=== PATIENT | male | born 1955 | race Caucasian/White ===

== ENCOUNTER 2021-11-09 23:20 | Inpatient (IN) | payer MEDICARE, MEDICAID ==
[~2021-11-09] VITALS: Ht 180.3 cm; Wt 104.3 kg
[2021-11-09] MEDS ORDERED: ACETAMINOPHEN 1000 MG/100 ML IV STA (23:40)
[2021-11-09] MEDS ORDERED: SODIUM CHLORIDE 0.9% 1000ML 1,000 ML IV ONE (23:45)
[2021-11-10] VITALS (42 sets, daily range): BP systolic 70–161; BP diastolic 45–90
[2021-11-10 00:47] LABS: BASOPHILS % 0.3 % (0.0-1.0); EOSINOPHILS % 0.1 % (0.0-6.0); HEMATOCRIT 39.7 % (38.2-49.6); HEMOGLOBIN 13.5 g/dL (14.0-18.0); LYMPHOCYTES # (AUTO) 1.1 (1.0-3.2); LYMPHOCYTES % 7.1 % (18.0-39.1); MEAN CORPUSCULAR HEMOGLOBIN 31.7 pg (28-32); MEAN CORPUSCULAR VOLUME 93.2 fL (81-99); MONOCYTES # (AUTO) 1.1 (0.2-0.8); MONOCYTES % 6.7 % (4.4-11.3); NEUTROPHILS # (AUTO) 13.1 (2.1-6.9); NEUTROPHILS % 84.3 % (38.7-80.0); PLATELET COUNT 214 x10e3/uL (140-360); RED BLOOD COUNT 4.26 x10e6/uL (4.3-5.7); RED CELL DISTRIBUTION WIDTH 15.5 % (11.7-14.4)
[2021-11-10] MEDS ORDERED: SODIUM CHLORIDE 0.9% 1000ML 1,000 ML IV ONE ×2 (01:00)
[2021-11-10 01:05] LABS: ALBUMIN 2.5 g/dL (3.5-5.0); ALBUMIN/GLOBULIN RATIO 0.5 (0.8-2.0); ANION GAP 14.1 mmol/L (8-16); CALCIUM 9.7 mg/dL (8.4-10.2); CREATININE, SERUM 1.29 mg/dL (0.72-1.25); POTASSIUM 4.1 mmol/L (3.5-5.1)
[2021-11-10] MEDS: CEFEPIME 2 GM in SODIUM CHLORIDE 0.9% 100 ML IV SCH ×4 (01:05→21:37)
[2021-11-10 01:07] LABS: CREATINE KINASE MB 0.6 ng/mL (0-5.0)
[2021-11-10 01:40] LABS: CLARITY,URINE TURBID (CLEAR); COLOR,URINE YELLOW (YELLOW); KETONES,URINE TRACE (NEGATIVE); LEUKOCYTE ESTERASE ,URINE LARGE (NEGATIVE); NITRITE,URINE NEGATIVE (NEGATIVE); PROTEIN,URINE DIPSTICK >=300 (NEGATIVE); URINE UROBILINOGEN 1 mg/dL (0.2 - 1)
[2021-11-10 01:42] LABS: BACTERIA,URINE MANY /HPF; EPITHELIAL CELLS,URINE FEW /LPF; WBC,URINE (MAN) >50 /HPF (0-5)
[2021-11-10] MEDS ORDERED: ONDANSETRON HCL INJ 2MG/ML 2ML 2 MG/ML VIAL IV PRN (02:45)
[2021-11-10] MEDS ORDERED: Vancomycin IV 1 GM in SODIUM CHLORIDE 0.9% 250ML 250 ML IV SCH (02:45)
[2021-11-10] MEDS: NOREPINEPHRINE 8 MG/D5W 250 ML 250 ML IV SCH (02:52)
[2021-11-10] MEDS: SODIUM CHLORIDE 0.9% 1000ML 1,000 ML IV SCH ×3 (03:28→18:09)
[2021-11-10 05:49] LABS: BASOPHILS % 0.3 % (0.0-1.0); EOSINOPHILS # (AUTO) 0.1 (0.0-0.4); EOSINOPHILS % 0.4 % (0.0-6.0); HEMATOCRIT 35.1 % (38.2-49.6); HEMOGLOBIN 11.5 g/dL (14.0-18.0); LYMPHOCYTES # (AUTO) 0.9 (1.0-3.2); LYMPHOCYTES % 6.5 % (18.0-39.1); MEAN CORPUSCULAR HEMOGLOBIN 31.8 pg (28-32); MEAN CORPUSCULAR HGB CONC 32.8 g/dL (31-35); MONOCYTES # (AUTO) 0.7 (0.2-0.8); NEUTROPHILS # (AUTO) 11.9 (2.1-6.9); PLATELET COUNT 179 x10e3/uL (140-360); RED BLOOD COUNT 3.62 x10e6/uL (4.3-5.7); RED CELL DISTRIBUTION WIDTH 15.5 % (11.7-14.4)
[2021-11-10 06:03] LABS: ALBUMIN/GLOBULIN RATIO 0.5 (0.8-2.0); ANION GAP 11.2 mmol/L (8-16); CALCIUM 8.3 mg/dL (8.4-10.2); CREATININE, SERUM 1.18 mg/dL (0.72-1.25); MAGNESIUM 1.6 MG/DL (1.3-2.1); PHOSPHORUS 3.4 MG/DL (2.3-4.7); POTASSIUM 4.2 mmol/L (3.5-5.1)
[2021-11-10] MEDS ORDERED: MELATONIN 3 MG TAB PO PRN (06:45)
[2021-11-10] MEDS ORDERED: DOCUSATE SODIUM 100 MG CAP PO PRN (06:45)
[2021-11-10] MEDS ORDERED: IPRATROPIUM BROMIDE 0.02% 2.5 ML NEB NEB PRN (06:45)
[2021-11-10] MEDS ORDERED: HYDRALAZINE HCL 20 MG/ML VIAL IV PRN (06:45)
[2021-11-10] MEDS ORDERED: ACETAMINOPHEN 325 MG TAB PEG PRN (06:45)
[2021-11-10] MEDS ORDERED: GUAIFENESIN/DEXTROMETHORPHAN LIQD 5 ML UDC PO PRN (06:45)
[2021-11-10] MEDS: MULTIVITAMINS/MINERALS TAB PO SCH (08:06)
[2021-11-10 08:32] LABS: FREE THYROXINE INDEX 2.088 (1.4-3.8); THYROID STIMULATING HORMONE 0.879 uIU/mL (0.350-4.940)
[2021-11-10] MEDS ORDERED: LIDOCAINE1 EAC1 TOP (10:11)
[2021-11-10] MEDS ORDERED: COREG6.25 MG PO (10:11)
[2021-11-10] MEDS ORDERED: LATANOPROST2.5 ML OU (10:11)
[2021-11-10] MEDS ORDERED: COLACE100 MG PO (10:11)
[2021-11-10] MEDS ORDERED: TYLENOL325 MG PO (10:11)
[2021-11-10] MEDS ORDERED: ATORVASTATIN CA40 MG PO (10:11)
[2021-11-10] MEDS ORDERED: FLOMAX0.4 MG PO (10:11)
[2021-11-10] MEDS ORDERED: BRIMONIDINE TART5 ML OU (10:11)
[2021-11-10] MEDS ORDERED: LYRICA100 MG PO ×2 (10:11)
[2021-11-10] MEDS ORDERED: ASPIRIN EC81 MG PO (10:11)
[2021-11-10] MEDS ORDERED: TRAZODONE HCL50 MG PO (10:11)
[2021-11-10] MEDS ORDERED: LISINOPRIL10 MG PO (10:11)
[2021-11-10] MEDS ORDERED: AMANTADINE100 MG PO (10:11)
[2021-11-10] MEDS ORDERED: MEGESTROL400 MG/10 PO (10:11)
[2021-11-10] MEDS ORDERED: HYDROCODON-ACE1 EAC9 PO (10:11)
[2021-11-10] MEDS ORDERED: VENLAFAXINE HCL75 M2 PO (10:11)
[2021-11-10] MEDS ORDERED: NYSTATIN1 EAC2 TOP (10:14)
[2021-11-10] MEDS: ENOXAPARIN SOD INJ 40 MG/0.4 ML SYR SC SCH (18:01)
[2021-11-11] VITALS (64 sets, daily range): BP systolic 70–140; BP diastolic 30–100
[2021-11-11] MEDS: SODIUM CHLORIDE 0.9% 1000ML 1,000 ML IV SCH (02:22)
[2021-11-11] MEDS: Vancomycin IV 1 GM in SODIUM CHLORIDE 0.9% 250ML 250 ML IV SCH ×2 (02:27→08:03)
[2021-11-11] MEDS: NOREPINEPHRINE 8 MG/D5W 250 ML 250 ML IV SCH (02:45)
[2021-11-11] MEDS: CEFEPIME 2 GM in SODIUM CHLORIDE 0.9% 100 ML IV SCH ×3 (05:17→20:55)
[2021-11-11 07:45] LABS: BASOPHILS % 0.2 % (0.0-1.0); EOSINOPHILS # (AUTO) 0.1 (0.0-0.4); EOSINOPHILS % 1.1 % (0.0-6.0); HEMATOCRIT 33.7 % (38.2-49.6); HEMOGLOBIN 11.1 g/dL (14.0-18.0); LYMPHOCYTES # (AUTO) 0.9 (1.0-3.2); LYMPHOCYTES % 7.6 % (18.0-39.1); MEAN CORPUSCULAR HEMOGLOBIN 30.8 pg (28-32); MEAN CORPUSCULAR HGB CONC 32.9 g/dL (31-35); MEAN CORPUSCULAR VOLUME 93.6 fL (81-99); MONOCYTES # (AUTO) 0.8 (0.2-0.8); MONOCYTES % 6.3 % (4.4-11.3); NEUTROPHILS # (AUTO) 10.4 (2.1-6.9); NEUTROPHILS % 84.3 % (38.7-80.0); PLATELET COUNT 174 x10e3/uL (140-360); RED CELL DISTRIBUTION WIDTH 15.5 % (11.7-14.4)
[2021-11-11] MEDS: MULTIVITAMINS/MINERALS TAB PO SCH (08:03)
[2021-11-11 08:07] LABS: ALBUMIN 1.9 g/dL (3.5-5.0); ALBUMIN/GLOBULIN RATIO 0.5 (0.8-2.0); ANION GAP 10.4 mmol/L (8-16); CALCIUM 8.1 mg/dL (8.4-10.2); CREATININE, SERUM 0.76 mg/dL (0.72-1.25); POTASSIUM 3.4 mmol/L (3.5-5.1)
[2021-11-11 08:53] LABS: MAGNESIUM 1.5 MG/DL (1.3-2.1); PHOSPHORUS 1.7 MG/DL (2.3-4.7)
[2021-11-11] MEDS ORDERED: DOCUSATE SODIUM 100 MG CAP PO PRN (09:30)
[2021-11-11] MEDS ORDERED: POTASSIUM CHLORIDE 20MEQ/100ML 200 ML IV ONE (09:30)
[2021-11-11] MEDS ORDERED: ACETAMINOPHEN 325 MG TAB PO PRN (09:30)
[2021-11-11] MEDS: TAMSULOSIN HCL 0.4 MG CAP PO SCH (10:00)
[2021-11-11] MEDS: ASPIRIN 81 MG ENTERIC COATED PO SCH (10:00)
[2021-11-11] MEDS: CARVEDILOL 3.125 MG TAB PO SCH ×2 (10:01→20:54)
[2021-11-11] MEDS: AMANTADINE HCL 100 MG CAP PO SCH ×2 (10:29→16:28)
[2021-11-11] MEDS: ACETAMINOPHEN 325 MG TAB PO PRN ×2 (11:12→20:55)
[2021-11-11] MEDS: ENOXAPARIN SOD INJ 40 MG/0.4 ML SYR SC SCH (16:28)
[2021-11-11] MEDS ORDERED: MIDODRINE 2.5 MG TAB PO STA (16:52)
[2021-11-12] VITALS (50 sets, daily range): BP systolic 91–146; BP diastolic 64–117
[2021-11-12] MEDS: NOREPINEPHRINE 8 MG/D5W 250 ML 250 ML IV SCH ×2 (00:17→21:32)
[2021-11-12] MEDS: CEFEPIME 2 GM in SODIUM CHLORIDE 0.9% 100 ML IV SCH (05:19)
[2021-11-12 05:34] LABS: BASOPHILS % 0.3 % (0.0-1.0); EOSINOPHILS # (AUTO) 0.2 (0.0-0.4); EOSINOPHILS % 1.8 % (0.0-6.0); HEMOGLOBIN 12.4 g/dL (14.0-18.0); LYMPHOCYTES # (AUTO) 1.2 (1.0-3.2); LYMPHOCYTES % 11.4 % (18.0-39.1); MEAN CORPUSCULAR HEMOGLOBIN 31.2 pg (28-32); MEAN CORPUSCULAR HGB CONC 34.4 g/dL (31-35); MONOCYTES # (AUTO) 0.7 (0.2-0.8); MONOCYTES % 7.1 % (4.4-11.3); NEUTROPHILS % 78.7 % (38.7-80.0); PLATELET COUNT 181 x10e3/uL (140-360); RED BLOOD COUNT 3.98 x10e6/uL (4.3-5.7); RED CELL DISTRIBUTION WIDTH 15.3 % (11.7-14.4)
[2021-11-12 05:36] LABS: MEAN CORPUSCULAR VOLUME 90.5 fL (81-99)
[2021-11-12 06:02] LABS: ALBUMIN/GLOBULIN RATIO 0.4 (0.8-2.0); ANION GAP 11.3 mmol/L (8-16); CALCIUM 8.5 mg/dL (8.4-10.2); CREATININE, SERUM 0.74 mg/dL (0.72-1.25); POTASSIUM 3.3 mmol/L (3.5-5.1)
[2021-11-12] MEDS: ASPIRIN 81 MG ENTERIC COATED PO SCH (07:55)
[2021-11-12] MEDS: CARVEDILOL 3.125 MG TAB PO SCH ×2 (07:56→20:47)
[2021-11-12] MEDS: TAMSULOSIN HCL 0.4 MG CAP PO SCH (07:56)
[2021-11-12] MEDS: MULTIVITAMINS/MINERALS TAB PO SCH (07:56)
[2021-11-12] MEDS: AMANTADINE HCL 100 MG CAP PO SCH ×2 (07:56→16:40)
[2021-11-12] MEDS ORDERED: POTASSIUM CHLORIDE 20 MEQ TAB CR PO NR (09:15)
[2021-11-12] MEDS: MAGNESIUM SULFATE 2GM/50ML 50 ML IV SCH ×2 (09:26→11:00)
[2021-11-12] MEDS: MEROPENEM 1 GM in SODIUM CHLORIDE 0.9% 100 ML IV SCH ×3 (09:26→21:30)
[2021-11-12] MEDS: ENOXAPARIN SOD INJ 40 MG/0.4 ML SYR SC SCH (16:40)
[2021-11-12] MEDS ORDERED: SODIUM CHLORIDE 0.9% 250ML 250 ML ONE (21:31)
[2021-11-13] VITALS (8 sets, daily range): BP systolic 105–123; BP diastolic 81–94
[2021-11-13] MEDS: MEROPENEM 1 GM in SODIUM CHLORIDE 0.9% 100 ML IV SCH ×3 (05:39→22:04)
[2021-11-13 06:14] LABS: BASOPHILS % 0.4 % (0.0-1.0); EOSINOPHILS # (AUTO) 0.3 (0.0-0.4); EOSINOPHILS % 4.1 % (0.0-6.0); HEMATOCRIT 34.1 % (38.2-49.6); HEMOGLOBIN 12.2 g/dL (14.0-18.0); LYMPHOCYTES # (AUTO) 1.5 (1.0-3.2); LYMPHOCYTES % 20.1 % (18.0-39.1); MEAN CORPUSCULAR HEMOGLOBIN 32.4 pg (28-32); MEAN CORPUSCULAR HGB CONC 35.8 g/dL (31-35); MEAN CORPUSCULAR VOLUME 90.7 fL (81-99); MONOCYTES # (AUTO) 0.8 (0.2-0.8); MONOCYTES % 10.9 % (4.4-11.3); NEUTROPHILS # (AUTO) 4.8 (2.1-6.9); NEUTROPHILS % 63.6 % (38.7-80.0); PLATELET COUNT 176 x10e3/uL (140-360); RED BLOOD COUNT 3.76 x10e6/uL (4.3-5.7); RED CELL DISTRIBUTION WIDTH 15.3 % (11.7-14.4)
[2021-11-13 06:37] LABS: ALBUMIN 1.9 g/dL (3.5-5.0); ALBUMIN/GLOBULIN RATIO 0.5 (0.8-2.0); ANION GAP 11.5 mmol/L (8-16); CALCIUM 8.2 mg/dL (8.4-10.2); CREATININE, SERUM 0.68 mg/dL (0.72-1.25); MAGNESIUM 1.8 MG/DL (1.3-2.1); POTASSIUM 3.5 mmol/L (3.5-5.1)
[2021-11-13] MEDS: TAMSULOSIN HCL 0.4 MG CAP PO SCH (09:21)
[2021-11-13] MEDS: CARVEDILOL 3.125 MG TAB PO SCH ×2 (09:21→21:00)
[2021-11-13] MEDS: ASPIRIN 81 MG ENTERIC COATED PO SCH (09:21)
[2021-11-13] MEDS: AMANTADINE HCL 100 MG CAP PO SCH ×2 (09:22→15:57)
[2021-11-13] MEDS: MULTIVITAMINS/MINERALS TAB PO SCH (09:22)
[2021-11-13] MEDS: ENOXAPARIN SOD INJ 40 MG/0.4 ML SYR SC SCH (15:57)
[2021-11-13] MEDS ORDERED: ONDANSETRON HCL 4 MG ORAL DISINTEGRATING TAB PO PRN (17:15)
[2021-11-13] MEDS: ACETAMINOPHEN 325 MG TAB PO PRN (20:51)
[2021-11-14] VITALS (8 sets, daily range): BP systolic 104–131; BP diastolic 78–99
[2021-11-14] MEDS: NOREPINEPHRINE 8 MG/D5W 250 ML 250 ML IV SCH ×2 (02:45→23:59)
[2021-11-14] MEDS: MEROPENEM 1 GM in SODIUM CHLORIDE 0.9% 100 ML IV SCH ×3 (05:20→22:05)
[2021-11-14] MEDS: CARVEDILOL 3.125 MG TAB PO SCH ×2 (09:05→22:06)
[2021-11-14] MEDS: ASPIRIN 81 MG ENTERIC COATED PO SCH (09:05)
[2021-11-14] MEDS: TAMSULOSIN HCL 0.4 MG CAP PO SCH (09:05)
[2021-11-14] MEDS: AMANTADINE HCL 100 MG CAP PO SCH ×2 (09:06→17:25)
[2021-11-14] MEDS: MULTIVITAMINS/MINERALS TAB PO SCH (09:06)
[2021-11-14] MEDS: ENOXAPARIN SOD INJ 40 MG/0.4 ML SYR SC SCH (17:25)
[2021-11-15] VITALS (9 sets, daily range): BP systolic 96–159; BP diastolic 68–95
[2021-11-15] MEDS: ACETAMINOPHEN 325 MG TAB PO PRN ×2 (03:30→12:33)
[2021-11-15] MEDS: MEROPENEM 1 GM in SODIUM CHLORIDE 0.9% 100 ML IV SCH ×3 (05:33→22:00)
[2021-11-15] MEDS: AMANTADINE HCL 100 MG CAP PO SCH ×2 (09:32→16:02)
[2021-11-15] MEDS: MULTIVITAMINS/MINERALS TAB PO SCH (09:32)
[2021-11-15] MEDS: TAMSULOSIN HCL 0.4 MG CAP PO SCH (09:32)
[2021-11-15] MEDS: ASPIRIN 81 MG ENTERIC COATED PO SCH (09:32)
[2021-11-15] MEDS: CARVEDILOL 3.125 MG TAB PO SCH ×2 (09:32→21:00)
[2021-11-15] MEDS: ENOXAPARIN SOD INJ 40 MG/0.4 ML SYR SC SCH (16:02)
[2021-11-16] VITALS (7 sets, daily range): BP systolic 102–138; BP diastolic 78–98
[2021-11-16] MEDS: MEROPENEM 1 GM in SODIUM CHLORIDE 0.9% 100 ML IV SCH ×3 (06:00→21:08)
[2021-11-16] MEDS: ACETAMINOPHEN 325 MG TAB PO PRN (09:03)
[2021-11-16] MEDS: MULTIVITAMINS/MINERALS TAB PO SCH (09:04)
[2021-11-16] MEDS: TAMSULOSIN HCL 0.4 MG CAP PO SCH (09:04)
[2021-11-16] MEDS: CARVEDILOL 3.125 MG TAB PO SCH ×2 (09:04→21:00)
[2021-11-16] MEDS: ASPIRIN 81 MG ENTERIC COATED PO SCH (09:04)
[2021-11-16] MEDS: AMANTADINE HCL 100 MG CAP PO SCH ×2 (09:04→16:33)
[2021-11-16] MEDS: ENOXAPARIN SOD INJ 40 MG/0.4 ML SYR SC SCH (16:33)
[2021-11-17] VITALS: BP 109/88
[2021-11-17 04:00] VITALS: BP 109/88
[2021-11-17] MEDS: MEROPENEM 1 GM in SODIUM CHLORIDE 0.9% 100 ML IV SCH ×2 (06:00→14:13)
[2021-11-17 07:43] VITALS: BP 95/66
[2021-11-17 08:33] VITALS: BP 95/60
[2021-11-17] MEDS: TAMSULOSIN HCL 0.4 MG CAP PO SCH (08:44)
[2021-11-17] MEDS: CARVEDILOL 3.125 MG TAB PO SCH (08:44)
[2021-11-17] MEDS: ASPIRIN 81 MG ENTERIC COATED PO SCH (08:44)
[2021-11-17] MEDS: AMANTADINE HCL 100 MG CAP PO SCH (08:45)
[2021-11-17] MEDS: MULTIVITAMINS/MINERALS TAB PO SCH (08:45)
[2021-11-17 11:34] VITALS: BP 111/85
[2021-11-17] MEDS ORDERED: BACTRIM DS TAB1 EACH PO (13:19)
[2021-11-17] MEDS ORDERED: MULTI-VITAMIN1 EACH PO (13:20)
[2021-11-17] MEDS ORDERED: IPRATROPIU0.2 MG/1 M INH (13:21)
[2021-11-17] MEDS ORDERED: MELATONIN3 MG PO (13:21)
[2021-11-17] MEDS ORDERED: ONDANSETRON ODT4 MG PO (13:23)
[2021-11-17 16:00] VITALS: BP 116/78
== END 2021-11-17 16:10 | DRG 871 ==
LOC: ER 23:41 → ERHOLD 11-10 02:40 → ICU 11-10 05:30 → MED/SURG2 11-12 17:41
PROC: 06HY33Z Insertion of Infusion Device into Lower Vein, Percutaneous Approach (ICD-10-PCS; principal; 2021-11-10)
PROC: 3E03329 Introduction of Other Anti-infective into Peripheral Vein, Percutaneous Approach (ICD-10-PCS; 2021-11-10)
PROC: 3E043XZ Introduction of Vasopressor into Central Vein, Percutaneous Approach (ICD-10-PCS; 2021-11-10)
DX: A41.89 Other specified sepsis (principal); R65.21 Severe sepsis with septic shock; U07.1 COVID-19; J69.0 Pneumonitis due to inhalation of food and vomit; J12.82 Pneumonia due to coronavirus disease 2019; N17.0 Acute kidney failure with tubular necrosis; T83.511A Infection and inflammatory reaction due to indwelling urethral catheter, initial encounter; L03.115 Cellulitis of right lower limb; G82.20 Paraplegia, unspecified; N30.00 Acute cystitis without hematuria; Z16.12 Extended spectrum beta lactamase (ESBL) resistance; A41.9 Sepsis, unspecified organism; G20 Parkinson's disease; I10 Essential (primary) hypertension; Z88.8 Allergy status to other drugs, medicaments and biological substances; E88.09 Other disorders of plasma-protein metabolism, not elsewhere classified; D64.9 Anemia, unspecified; Z87.891 Personal history of nicotine dependence; F32.A Depression, unspecified; B96.20 Unspecified Escherichia coli [E. coli] as the cause of diseases classified elsewhere
CPT/HCPCS: 36415; 36555; 36556; 70450; 71045; 74018; 80053; 81001; 82533; 82550; 82553; 83605; 83735; 84100; 84436; 84443; 84479; 84484; 84550; 85025; 87040; 87086; 87186; 93005; 93925; 94799; 99251; 99285; J0456; J0692; J1650; J2185; J3370; J3475; J3480; J7030; J7050; U0002